=== PATIENT | male | born 1935 | race African-American/Black ===

== ENCOUNTER 2019-06-24 00:11 | Day surgery (SDC) | payer MEDICARE, SELFPAY ==
[2019-06-09 15:16] VITALS: BMI 26.1
[2019-06-24] VITALS (16 sets, daily range): BP systolic 76–154; BP diastolic 30–96; PULSE 62–88; RESP 12–20; TEMP 36.3–36.6; O2SAT 94–100
--- NOTE | 2019-06-24 06:33 | WPDHPUPDATE1 ---
History and Physical Update Update Date/Time: 06/24/19 06:33 History and Physical has been reviewed, including an updated exam of the patient. There are NO changes in the patient's condition. Risks, benefits, and alternatives have been discussed and questions answered. Patient agrees to proceed with procedure.
--- NOTE | 2019-06-24 08:13 | P.PNAN_ITS ---
Anes - Initial Pre Proc Eval Procedure: Operation Date: 06/24/19 10:45 Proposed Procedures p Transurethral Resection Bladder Tumor With Mitomycin C - Brandon Hollins MD Date/Time: 06/24/19 08:13 Surgeon: Brandon Hollins MD Pre Op Diagnosis: Bladder Tumor Patient Data Age: 83 Gender: M Height: 1.73 m Weight: 78 kg Allergies Allergy/AdvReac Type Severity Reaction Status Date / Time No Known Allergies Allergy Verified 06/09/19 15:10 Home Medications Medication Instructions Recorded Confirmed Type amlodipine 5 mg PO DAILY 03/01/19 06/09/19 History aspirin [Adult Low Dose Aspirin] 81 mg PO DAILY 03/01/19 06/09/19 History calcium polycarbophil [Fiber-Tabs] 1,250 mg PO DAILY 03/01/19 06/09/19 History cholecalciferol (vitamin D3) 1,000 unit PO DAILY 03/01/19 06/09/19 History cyanocobalamin (vitamin B-12) 2,000 mcg PO DAILY 03/01/19 06/09/19 History escitalopram oxalate 10 mg PO DAILY 03/01/19 06/09/19 History lisinopril 40 mg PO BID 03/01/19 06/09/19 History potassium chloride [Klor-Con 10] 20 meq PO DAILY 03/01/19 06/09/19 History pravastatin 20 mg PO HS 03/01/19 06/09/19 History psyllium husk [Metamucil] 0.52 g PO DAILY 03/01/19 06/09/19 History Patient hx anesthesia problems: none Family hx anesthesia problems: none [facility] Past Medical History Medical History (Updated 03/03/19 @ 08:32 by Saeid Trejo DO) Depression History of bladder cancer Hyperlipidemia Hypertension Anes - Eval Final PreProcedure Day of Procedure 06/24/19 08:13 Patient weight: overweight Heart: regular rate and rhythm Lungs: clear to auscultation and normal air movement Airway: Mallampati scale class II Neurological: alert and oriented Last oral intake: >/= 8 hours ASA classification: III Emergent: no Anesthetic plan: proceed Anesthesia type and monitoring: general GIVS Informed Consent: The patient's anesthetic plan and its attendant risks and benefits were discussed with the patient/family/POA. Questions were solicited and answers provided to the satisfaction of the patient/family/POA.
[2019-06-24] MEDS: LACTATED RINGERS 1,000 ML 30 ML IV CONT ×2 (09:18→10:46)
[2019-06-24] MEDS: ceFAZolin 2 GM/D5W 50 ML 2 GM/50 ML BAG IVPB (09:45)
--- NOTE | 2019-06-24 10:32 | PM.PROC ---
Procedure Note - Detailed Date of procedure: 06/24/19 Pre-op diagnosis: Bladder Tumor Post-op diagnosis: same Procedure performed: TURBT (medium, 3.5cm) Description of procedure: The patient was brought to the operative suite where he is prepped and draped in a routine sterile fashion while in the dorsal lithotomy position. This is done after the uneventful administration of systemic sedation. 2% Xylocaine jelly is introduced intraurethrally and allowed to stand for an appropriate period of time. A 24F resectoscope sheath was placed in the bladder and the bladder is circumferentially inspected carefully. 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 This area is resected in its entirety with an attempt made to include detrusor muscle for pathological evaluation of invasion. The base and periphery of this resected side is cauterized with a loop electrode. The bladder is emptied and the resectoscope was removed. The patient is taken to the recovery room having tolerated this procedure well. Anesthesia: GLMA Surgeon: Brandon Hollins MD Estimated blood loss (mL): 0 Drains: Yes (16F Patel) Packing: No Pathology: yes Complications: No immediate complications Condition: stable Disposition: PACU
--- NOTE | 2019-06-24 10:34 | PM.PROC ---
Procedure Note - Detailed Date of procedure: 06/24/19 Pre-op diagnosis: Bladder Tumor Post-op diagnosis: same Procedure performed: Instillation Mitomycin into bladder. Description of procedure: With the patient in the supine position, a 16F Patel catheter is placed using sterile technique. Using a protective facemask, gown and double layer of gloves Mitomycin 40gm in 60cc saline is administered through the catheter/into the bladder. The catheter is then plugged. Patient was instructed to lie supine x20min, then to roll both the left and right x20 min. each. Total dwell time will be 60 min., after which the bladder will be drained and catheter removed. Anesthesia: none Surgeon: Brandon Hollins MD Estimated blood loss (mL): 0 Drains: Yes (16F Patel) Packing: No Pathology: none sent Complications: No immediate complications Condition: stable Disposition: PACU
[2019-06-24 10:45] LABS: Glucose Point of Care 98 (65-105)
[2019-06-24] MEDS: ePHEDrine sulfate INJ 50 MG/ML AMPUL 25 MG IM (10:45)
--- NOTE | 2019-06-24 11:04 | SUR.PHASEI ---
1033 Mitali Sampson called to bedside, Pts bp 76/48 Pt diaphoretic, hr in the 60's, Pt with multifocal PVC's noted. Orders received. Pt remains on O2 via simple mask, fluids running. See MAR and charting
--- NOTE | 2019-06-24 12:12 | SUR.PHASEI ---
1155 MONTOYA CATHETER ATTACHED TO GRAVITY. MONTOYA DRAINING- LIGHT PURPLE IN COLOR WITHOUT CLOTS NOTED. 1203 BLADDER DRAINED. 150ML NS INSTILLED INTO BLADDER. MONTOYA CATHETER DISCONTINUED.
== END 2019-06-24 12:58 | disposition home or self-care (01) ==
PROVIDERS: Visit Provider Urology
PROC: 0TBB8ZZ Excision of Bladder, Via Natural or Artificial Opening Endoscopic (ICD-10-PCS; CPT 52235; principal; 2019-06-24 10:45)
DX: C67.2 Malignant neoplasm of lateral wall of bladder (principal); I10 Essential (primary) hypertension; F32.9 Major depressive disorder, single episode, unspecified; Z79.82 Long term (current) use of aspirin
CPT/HCPCS: 52235; 51720; 88305; A9270; J0690; J1100; J2370; J2405; J2704; J3010; J7120; J9280

== ENCOUNTER 2020-03-06 01:50 | Outpatient (CLI) | payer MEDICARE, SELFPAY ==
[2020-03-06 21:22] LABS: SARS-CoV-2 RNA PCR Positive
== END 2020-03-06 01:51 | disposition home or self-care (01) ==
LOC: ANHCOVIDDT 01:51
PROVIDERS: Visit Provider Urology
DX: U07.1 COVID-19 (principal)
CPT/HCPCS: 87635; 93005; C9803; U0003

== ENCOUNTER 2020-03-06 08:38 | Outpatient (CLI) | payer MEDICARE, SELFPAY ==
--- NOTE | 2020-03-06 08:39 | ECG_ITS ---
Measurements Intervals [place] Rate: 77 P: 51 MI: 175 QRS: 34 QRSD: 76 T: 98 QT: 366 QTc: 417 Interpretive Statements SINUS RHYTHM FREQUENT VENTRICULAR PREMATURE COMPLEXES LEFT ATRIAL ENLARGEMENT EARLY PRECORDIAL R/S TRANSITION LEFT VENTRICULAR HYPERTROPHY WITH ST-T CHANGE BASELINE ARTIFACT- I, II, AVR, V3-V4 BORDERLINE ECG Electronically Signed On 03-06-2020 11:20:24 MANAGEMENT ENGINEER by Rudy Moe D.O.
== END 2020-03-06 08:39 | disposition home or self-care (01) ==
PROVIDERS: Visit Provider Urology
DX: Z01.818 Encounter for other preprocedural examination (principal); I10 Essential (primary) hypertension; R94.31 Abnormal electrocardiogram [ECG] [EKG]
CPT/HCPCS: 93005

== ENCOUNTER 2020-03-27 01:37 | Outpatient (CLI) | payer MEDICARE, SELFPAY ==
[2020-03-27 18:52] LABS: SARS-CoV-2 RNA PCR Negative
== END 2020-03-27 01:38 | disposition home or self-care (01) ==
LOC: ANHCOVIDDT 01:38
PROVIDERS: Visit Provider Urology
DX: Z01.818 Encounter for other preprocedural examination (principal); Z20.828 Contact with and (suspected) exposure to other viral communicable diseases
CPT/HCPCS: 87635; C9803; U0003

== ENCOUNTER 2020-05-04 00:41 | Day surgery (SDC) | payer MEDICARE, SELFPAY ==
[2020-02-29 14:47] VITALS: BMI 25.9
--- NOTE | 2020-03-07 07:31 | P.HP_ITS ---
History of Present Illness History of Present Illness Consent: Risks, benefits, and alternatives have been discussed and questions answered. Patient agrees to proceed with procedure. Chief complaint: bladder tumors Narrative: Aron Boyce is a 84 year old male Who has a history of recurrent bladder tumors dating back to 2019. Recent outpatient cystoscopy showed several areas of recurrence including just inside the bladder neck anteriorly and laterally as well as in the left lateral wall. Recent CT scan of the abdomen and pelvis in October 2018 showed no evidence of upper tract pathology or metastatic disease. Review of Systems Cardiovascular: Cardiovascular: Denies chest pain, Denies lightheadedness, Denies palpitations and Denies dyspnea Respiratory: Respiratory: Denies dyspnea Gastrointestinal: Gastrointestinal: Denies diarrhea, Denies nausea and Denies vomiting Genitourinary: Genitourinary: Denies hematuria and Denies dysuria Endocrine: Endocrine: Denies palpitations PMFSH Past Medical History Medical History Depression History of bladder cancer Hyperlipidemia Hypertension Social History Social History Smoking status: Never smoker Alcohol intake: current Drinks per week: 2 Substance use: never Spiritual care concerns: No Meds Home Medications and Allergies Home Medications Medication Instructions Recorded Confirmed Type amlodipine 5 mg PO DAILY 03/01/19 02/29/20 History aspirin [Adult Low Dose Aspirin] 81 mg PO DAILY 03/01/19 02/29/20 History calcium polycarbophil [Fiber-Tabs] 1,250 mg PO DAILY 03/01/19 02/29/20 History cholecalciferol (vitamin D3) 1,000 unit PO DAILY 03/01/19 02/29/20 History cyanocobalamin (vitamin B-12) 2,000 mcg PO DAILY 03/01/19 02/29/20 History escitalopram oxalate 10 mg PO DAILY 03/01/19 02/29/20 History lisinopril 40 mg PO BID 03/01/19 02/29/20 History potassium chloride [Klor-Con 10] 20 meq PO DAILY 03/01/19 02/29/20 History pravastatin 20 mg PO HS 03/01/19 02/29/20 History psyllium husk [Metamucil] 0.52 g PO DAILY 03/01/19 02/29/20 History hydrocodone-acetaminophen 1 - 2 tablet PO Q6H PRN #20 tablet 06/24/19 02/29/20 Rx Allergies Allergy/AdvReac Type Severity Reaction Status Date / Time No Known Allergies Allergy Verified 02/29/20 14:40 Exam Const: General: no acute distress Resp: Effort & Inspection: normal respiratory effort GI: Inspection: non-distended GI Palp: No abdominal tenderness and No Guarding due to palpation present (GI) Auscultation: normal bowel sounds Assessment and Plan Assessment and plan (1) Malignant neoplasm of overlapping sites of bladder: Code(s): C67.8 - Malignant neoplasm of overlapping sites of bladder Status: Acute Assessment and Plan: * TURBT followed by intravesical mitomycin-C installation
--- NOTE | 2020-03-24 07:20 | P.HP_ITS ---
History of Present Illness History of Present Illness Consent: Risks, benefits, and alternatives have been discussed and questions answered. Patient agrees to proceed with procedure. Chief complaint: bladder tumors Narrative: Aron Boyce is a 84 year old male with a history of recurrent urolithiasis. In 12/2019 surveillance cystoscopy showed several recurrent bladder tumors just inside the bladder neck anteriorly, extending into left lateral wall. Review of Systems Cardiovascular: Cardiovascular: Denies chest pain, Denies lightheadedness, Denies palpitations and Denies dyspnea Respiratory: Respiratory: Denies dyspnea Gastrointestinal: Gastrointestinal: Denies diarrhea, Denies nausea and Denies vomiting Genitourinary: Genitourinary: Denies hematuria and Denies dysuria Endocrine: Endocrine: Denies palpitations PMFSH Past Medical History Medical History Depression History of bladder cancer Hyperlipidemia Hypertension Social History Social History Smoking status: Never smoker Alcohol intake: current Drinks per week: 2 Substance use: never Spiritual care concerns: No Meds Home Medications and Allergies Home Medications Medication Instructions Recorded Confirmed Type amlodipine 5 mg PO DAILY 03/01/19 02/29/20 History aspirin [Adult Low Dose Aspirin] 81 mg PO DAILY 03/01/19 02/29/20 History calcium polycarbophil [Fiber-Tabs] 1,250 mg PO DAILY 03/01/19 02/29/20 History cholecalciferol (vitamin D3) 1,000 unit PO DAILY 03/01/19 02/29/20 History cyanocobalamin (vitamin B-12) 2,000 mcg PO DAILY 03/01/19 02/29/20 History escitalopram oxalate 10 mg PO DAILY 03/01/19 02/29/20 History lisinopril 40 mg PO BID 03/01/19 02/29/20 History potassium chloride [Klor-Con 10] 20 meq PO DAILY 03/01/19 02/29/20 History pravastatin 20 mg PO HS 03/01/19 02/29/20 History psyllium husk [Metamucil] 0.52 g PO DAILY 03/01/19 02/29/20 History hydrocodone-acetaminophen 1 - 2 tablet PO Q6H PRN #20 tablet 06/24/19 02/29/20 Rx Allergies Allergy/AdvReac Type Severity Reaction Status Date / Time No Known Allergies Allergy Verified 02/29/20 14:40 Exam 2 Const: General: no acute distress Resp: Effort & Inspection: normal respiratory effort GI: Inspection: non-distended GI Palp: No abdominal tenderness and No Guarding due to palpation present (GI) Auscultation: normal bowel sounds Assessment and Plan Assessment and plan (1) Malignant neoplasm of overlapping sites of bladder: Code(s): C67.8 - Malignant neoplasm of overlapping sites of bladder Status: Acute Assessment and Plan: * Cystoscopy, TURBT and Mitomycin-C instillation.
[2020-03-24 09:41] VITALS: BMI 25.9
[2020-04-27 12:11] VITALS: BMI 25.9
--- NOTE | 2020-05-01 07:45 | P.HP_ITS ---
H&P: HPI History of Present Illness Date/Time: 05/01/20 07:45 Chief Complaint: Recurrent bladder tumors Narrative: Aron Boyce is a 84 year old male with known history of recurrent bladder tumors dating back to November 2018. surveillance cystoscopy in December 2019 revealed several areas recurrent neoplasm inside the anterior bladder neck. He was scheduled for TURBT had time but was canceled on a couple occasions because of an emergent hernia repair. Review of Systems Cardiovascular: Cardiovascular: Denies chest pain, Denies lightheadedness, Denies palpitations and Denies dyspnea Respiratory: Respiratory: Denies dyspnea Gastrointestinal: Gastrointestinal: Denies diarrhea, Denies nausea and Denies vomiting Genitourinary: Genitourinary: Denies hematuria and Denies dysuria Endocrine: Endocrine: Denies palpitations PMFSH Past Medical History Medical History Depression History of bladder cancer Hyperlipidemia Hypertension Social History Social History Smoking status: Never smoker Alcohol intake: current Drinks per week: 2 Substance use: never Living arrangements: with family Spiritual care concerns: No Meds Home Medications and Allergies Home Medications Medication Instructions Recorded Confirmed Type amlodipine 5 mg PO DAILY 03/01/19 04/27/20 History aspirin [Adult Low Dose Aspirin] 81 mg PO DAILY 03/01/19 04/27/20 History calcium polycarbophil [Fiber-Tabs] 1,250 mg PO DAILY 03/01/19 04/27/20 History cholecalciferol (vitamin D3) 1,000 unit PO DAILY 03/01/19 04/27/20 History cyanocobalamin (vitamin B-12) 2,000 mcg PO DAILY 03/01/19 04/27/20 History escitalopram oxalate 10 mg PO DAILY 03/01/19 04/27/20 History lisinopril 40 mg PO BID 03/01/19 04/27/20 History potassium chloride [Klor-Con 10] 20 meq PO DAILY 03/01/19 04/27/20 History pravastatin 20 mg PO HS 03/01/19 04/27/20 History psyllium husk [Metamucil] 0.52 g PO DAILY 03/01/19 04/27/20 History hydrocodone-acetaminophen 1 - 2 tablet PO Q6H PRN #20 tablet 03/05/20 01/07/21 Rx Allergies Allergy/AdvReac Type Severity Reaction Status Date / Time No Known Allergies Allergy Verified 04/27/20 12:21 Exam Const: General: no acute distress Resp: Effort & Inspection: normal respiratory effort GI: Inspection: non-distended GI Palp: No abdominal tenderness and No Guarding due to palpation present (GI) Auscultation: normal bowel sounds Assessment and Plan Assessment and plan (1) Malignant neoplasm of overlapping sites of bladder: Code(s): C67.8 - Malignant neoplasm of overlapping sites of bladder Status: Acute Assessment and Plan: * TURBT
[2020-05-04] VITALS (8 sets, daily range): BP systolic 121–147; BP diastolic 42–76; PULSE 65–84; RESP 8–22; TEMP 36.5–37; O2SAT 95–100
--- NOTE | 2020-05-04 07:10 | WPDHPUPDATE1 ---
History and Physical Update Update Date/Time: 05/04/20 07:10 History and Physical has been reviewed, including an updated exam of the patient. There are NO changes in the patient's condition. Risks, benefits, and alternatives have been discussed and questions answered. Patient agrees to proceed with procedure.
[2020-05-04] MEDS: LACTATED RINGERS 1,000 ML 30 ML IV CONT (10:02)
--- NOTE | 2020-05-04 10:13 | WPDANESEPPF ---
Anes - Initial Pre Proc Eval Procedure: Operation Date: 05/04/20 11:30 Proposed Procedures p Trans Urethral Resection Bladder Tumor with Mitomycin C Instillation - Brandon Hollins MD Date/Time: 05/04/20 10:13 Surgeon: Brandon Hollins MD Pre Op Diagnosis: bladder tumors Patient Data Age: 84 Gender: M Height: 5 ft 8 in Weight: 74.5 kg Last Vital Signs Temp 36.5 C 05/04/20 10:03 Pulse 79 05/04/20 10:03 Resp 16 05/04/20 10:03 BP 137/62 05/04/20 10:03 Pulse Ox 95 05/04/20 10:03 Allergies Allergy/AdvReac Type Severity Reaction Status Date / Time No Known Allergies Allergy Verified 05/04/20 09:24 Home Medications Medication Instructions Recorded Confirmed Type amlodipine 5 mg PO DAILY 03/01/19 05/04/20 History aspirin [Adult Low Dose Aspirin] 81 mg PO DAILY 03/01/19 05/04/20 History calcium polycarbophil [Fiber-Tabs] 1,250 mg PO DAILY 03/01/19 05/04/20 History cholecalciferol (vitamin D3) 1,000 unit PO DAILY 03/01/19 05/04/20 History cyanocobalamin (vitamin B-12) 2,000 mcg PO DAILY 03/01/19 05/04/20 History escitalopram oxalate 10 mg PO DAILY 03/01/19 05/04/20 History lisinopril 40 mg PO BID 03/01/19 05/04/20 History potassium chloride [Klor-Con 10] 20 meq PO DAILY 03/01/19 05/04/20 History pravastatin 20 mg PO HS 03/01/19 05/04/20 History hydrocodone-acetaminophen 1 - 2 tablet PO Q6H PRN #20 tablet 06/24/19 04/27/20 Rx Patient hx anesthesia problems: none Family hx anesthesia problems: none PMFSH Past Medical History Medical History Depression History of bladder cancer Hyperlipidemia Hypertension Social History Social History Smoking status: Never smoker Alcohol intake: current Drinks per week: 2 Substance use: never Living arrangements: with family Spiritual care concerns: No Anes - Eval Final PreProcedure Day of Procedure 05/04/20 10:13 Patient weight: normal Heart: regular rate and rhythm Lungs: clear to auscultation Airway: Mallampati scale class II Neurological: alert and oriented Last oral intake: >/= 8 hours ASA classification: III Emergent: no Anesthetic plan: proceed Anesthesia type and monitoring: general LMA and standard monitoring Informed Consent: The patient's anesthetic plan and its attendant risks and benefits were discussed with the patient/family/POA. Questions were solicited and answers provided to the satisfaction of the patient/family/POA.
[2020-05-04] MEDS: ceFAZolin 2 GM/D5W 50 ML 2 GM/50 ML BAG IVPB (10:49)
--- NOTE | 2020-05-04 11:44 | PM.PROC ---
Procedure Note - Detailed Date of procedure: 05/04/20 Pre-op diagnosis: bladder tumors Post-op diagnosis: same Procedure performed: 1TURBT (large, 5-6cm) Description of procedure: The patient was brought to the operative suite where he is prepped and draped in a routine sterile fashion while in the dorsal lithotomy position. This is done after the uneventful administration of systemic sedation. 2% Xylocaine jelly is introduced intraurethrally and allowed to stand for an appropriate period of time. A 24F resectoscope sheath was placed in the bladder and the bladder is circumferentially inspected carefully. He has a papillary transitional cell carcinoma predominately in the anterior bladder wall (5-6cm) but also two 1cm implants in the posterior bladder wall. This area is resected in its entirety with an attempt made to include detrusor muscle for pathological evaluation of invasion. Ureteral orifice integrity was preserved meticulously throughout this procedure. The base and periphery of this resected side is cauterized with a loop electrode. The bladder is emptied and the resectoscope was removed. The patient is taken to the recovery room having tolerated this procedure well. Anesthesia: GLMA Surgeon: Brandon Hollins MD Estimated blood loss (mL): 0 Drains: Yes (16F Patel) Packing: No Pathology: yes Complications: No immediate complications Condition: stable Disposition: PACU
--- NOTE | 2020-05-04 11:51 | PM.PROC ---
Procedure Note - Detailed Date of procedure: 05/04/20 Pre-op diagnosis: bladder tumors Post-op diagnosis: same Procedure performed: Mitomycin-C bladder instillation Description of procedure: With the patient in the supine position, a 16F Patel catheter is placed using sterile technique. Using a protective facemask, gown and double layer of gloves Mitomycin-C 40mg 500cc saline is administered through the catheter/into the bladder. The catheter is then plugged. Patient was instructed to lie supine x20min, then to roll both the left and right x20 min. each. Total dwell time will be 60 min., after which the bladder will be drained and catheter removed. Anesthesia: none Surgeon: Brandon Hollins MD Estimated blood loss (mL): 0 Drains: No Packing: No Pathology: none sent Complications: No immediate complications Condition: stable Disposition: PACU
--- NOTE | 2020-05-04 12:08 | SUR.PHASEI ---
DR. PAUL INSTILLED MITOMYCIN TO MONTOYA CATHETER. CATHETER CLAMPED; PATIENT ON RIGHT SIDE X 20 MIN.
[2020-05-04] MEDS: fentaNYL CITRATE INJ (*CRX) 100 MCG/2 ML VIAL 25 MCG IV PUSH (12:15)
--- NOTE | 2020-05-04 12:23 | SUR.PHASEI ---
PATIENT ON BACK X 20 MINUTES.
--- NOTE | 2020-05-04 12:39 | SUR.PHASEI ---
PATIENT ON LEFT SIDE X 20 MIN.
--- NOTE | 2020-05-04 12:56 | SUR.PHASEI ---
MONTOYA CATHETER DRAINED; IRRIGATED WITH 150 ML NORMAL SALINE. DRAINED AGAIN. RED URINE. PT TOLERATED PROCEDURE FAIR. MONTOYA CATHETER REMOVED.
== END 2020-05-04 13:50 | disposition home or self-care (01) ==
PROVIDERS: Visit Provider Urology
PROC: 0TBB8ZZ Excision of Bladder, Via Natural or Artificial Opening Endoscopic (ICD-10-PCS; CPT 52240; principal; 2020-05-04 11:30)
DX: C67.3 Malignant neoplasm of anterior wall of bladder (principal); I10 Essential (primary) hypertension; E78.5 Hyperlipidemia, unspecified; F32.9 Major depressive disorder, single episode, unspecified; Z79.82 Long term (current) use of aspirin
CPT/HCPCS: 52240; 51720; 88305; 88307; A9270; J0690; J2370; J2704; J3010; J7120; J9280

== ENCOUNTER 2020-12-06 11:57 | Outpatient (CLI) | payer MEDICARE, SELFPAY ==
--- NOTE | ~2020-12-06 | CT_ITS ---
EXAMINATION: CT LE LT wo con DATE: 12/06/2020 12:42 INDICATION: Unilateral primary osteoarthritis at the left knee. TECHNIQUE: High resolution computed tomography (CT) of the left lower limb from the hip through the a nkle was performed without intravenous contrast. Additional sagittal and coronal reconstructions were performed. Automated exposure control and iterative reconstruction technique were employed. The dose -length product was 1658.47 mGy-cm. COMPARISON: 10/04/2020 FINDINGS: Bone alignment is normal throughout the left lower limb. No fracture. Chondrocalcinosis at the medial and lateral menisci. Compartmental osteoarthritis at the left knee characterized by small marginal o steophyte in all 3 compartments and at least moderate joint space during the needle compartment and m ild joint space narrowing the patellofemoral compartment but which may be underestimated on nonweight bearing imaging. Small region of cortical irregularity suggesting high-grade overlying chondromalacia at the central weightbearing medial femoral condyle and caudal aspect of the trochlear groove. Small left knee joint effusion. Additional mild left hip and ankle osteoarthritis without joint effusions. Couple small heterotopic ossicles at the medial malleolar insertion of the deep deltoid ligament con sistent with likely sequela of chronic sprain. Small enthesophytes and/or hepatic ossicles at the [place] caneal insertion of the distal Achilles tendon. IMPRESSION: 1. 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 Reviewed, dictated and finalized at location A. IMPRESSION: 1. Chondrocalcinosis and at least moderate tricompartmental osteoarthritis at t he left knee with irregularity at the articular cortex suggesting high-grade ch ondromalacia along the weightbearing medial femoral condyle and at the trochlea r groove.
== END 2020-12-06 11:58 | disposition home or self-care (01) ==
PROVIDERS: PCP Internal Medicine Geriatric Medicine; Visit Provider Orthopaedic Surgery
DX: M17.12 Unilateral primary osteoarthritis, left knee (principal)
CPT/HCPCS: 73700

== ENCOUNTER 2020-12-11 08:10 | Outpatient (CLI) | payer MEDICARE, SELFPAY ==
--- NOTE | 2020-12-11 | ECG_ITS ---
Measurements Intervals [place] Rate: 78 P: 51 RI: 160 QRS: 31 QRSD: 89 T: 103 QT: 369 QTc: 421 Interpretive Statements SINUS RHYTHM VENTRICULAR BIGEMINY POSSIBLE LEFT ATRIAL ENLARGEMENT BORDERLINE ST-T WAVE ABNORMALITY- ANTEROLAT/HIGH LAT LEADS ABNORMAL ECG Electronically Signed On 12-11-2020 9:07:55 CDT by Rudy Moe D.O.
[2020-12-11 08:51] LABS: Hematocrit 42.3 % (42.0-52.0)
[2020-12-11 09:19] LABS: Albumin Level 3.7 g/dL (3.5-5.1); Estimated Glomerular Filt Rate > 60; Glucose 110 mg/dL (65-110)
[2020-12-11 10:01] LABS: Hemoglobin A1C 6.3 % (<5.7)
== END 2020-12-11 08:11 | disposition home or self-care (01) ==
PROVIDERS: PCP Internal Medicine Geriatric Medicine; Visit Provider Orthopaedic Surgery
DX: M17.12 Unilateral primary osteoarthritis, left knee (principal); Z01.818 Encounter for other preprocedural examination; R94.31 Abnormal electrocardiogram [ECG] [EKG]
CPT/HCPCS: 36415; 82040; 82565; 82947; 83036; 85014; 85018; 93005

== ENCOUNTER 2021-05-02 07:35 | Outpatient (CLI) | payer MEDICARE, SELFPAY ==
[2021-05-02 09:09] LABS: Eosinophils Absolute Auto 0.2 K/mm3 (0-0.3); Eosinophils Percent Auto 5.1 % (0-4.4); Hemoglobin 14.1 g/dL (14.0-18.0); Immature Granulocyte Absolute 0.01 K/mm3 (0.00-0.031); Immature Granulocyte Percent A 0.3 % (0-0.5); Lymphocytes Absolute Auto 1.29 K/mm3 (0.9-3.2); Mean Corpuscular HGB Conc 33.6 g/dl (32-36); Mean Corpuscular Hemoglobin 30.7 pg (26-34); Mean Corpuscular Volume 91.5 fl (80-100); Monocytes Absolute Auto 0.4 K/mm3 (0.1-0.6); Monocytes Percent Auto 10.2 % (2.6-8.5); Neutrophils Percent Auto 50.4 % (45.5-73.1); Platelet Count Result 231 k/mm3 (150-375); Red Blood Count 4.59 M/mm3 (4.6-6.20); Red Cell Distribution Width 13.6 % (11.5-14.5); White Blood Count 3.9 K/mm3 (4.5-10.0)
[2021-05-02 09:28] LABS: Albumin Level 4.1 g/dL (3.5-5.1); Estimated Glomerular Filt Rate > 60; Glucose 131 mg/dL (65-110)
[2021-05-02 10:24] LABS: Urine Cotinine NEGATIVE
[2021-05-02 10:58] LABS: Hemoglobin A1C 6.2 % (<5.7)
== END 2021-05-02 07:36 | disposition home or self-care (01) ==
PROVIDERS: PCP Internal Medicine Geriatric Medicine; Visit Provider Orthopaedic Surgery
DX: Z01.812 Encounter for preprocedural laboratory examination (principal); M17.12 Unilateral primary osteoarthritis, left knee; Z51.81 Encounter for therapeutic drug level monitoring; Z79.899 Other long term (current) drug therapy
CPT/HCPCS: 80307; 82040; 82565; 82947; 83036; 85025; 87081

== ENCOUNTER 2021-08-29 11:19 | Outpatient (CLI) | payer MEDICARE, SELFPAY ==
[2021-08-29 12:03] LABS: Basophils Absolute Auto 0.1 K/mm3 (0.0-0.1); Basophils Percent Auto 1.5 % (0.2-1.2); Eosinophils Absolute Auto 0.2 K/mm3 (0-0.3); Eosinophils Percent Auto 4.6 % (0-4.4); Hematocrit 41.7 % (42.0-52.0); Hemoglobin 14.2 g/dL (14.0-18.0); Lymphocytes Absolute Auto 1.51 K/mm3 (0.9-3.2); Lymphocytes Percent Auto 36.6 % (18.3-44.2); Mean Corpuscular HGB Conc 34.1 g/dl (32-36); Mean Corpuscular Hemoglobin 31.3 pg (26-34); Mean Corpuscular Volume 91.9 fl (80-100); Mean Platelet Volume 9.8 fl (7.4-10.4); Monocytes Absolute Auto 0.5 K/mm3 (0.1-0.6); Monocytes Percent Auto 12.3 % (2.6-8.5); Neutrophils Absolute Auto 1.9 K/mm3 (1.3-6.7); Platelet Count Result 248 k/mm3 (150-375); Red Blood Count 4.54 M/mm3 (4.6-6.20); Red Cell Distribution Width 14.1 % (11.5-14.5); White Blood Count 4.1 K/mm3 (4.5-10.0)
[2021-08-29 12:13] LABS: Urine Cotinine NEGATIVE
[2021-08-29 12:13] LABS: Estimated Glomerular Filt Rate > 60; Glucose 110 mg/dL (65-110)
[2021-08-29 12:45] LABS: Hemoglobin A1C 5.7 % (<5.7)
== END 2021-08-29 11:20 | disposition home or self-care (01) ==
LOC: ANHSURGERY 11:24
PROVIDERS: PCP Internal Medicine Geriatric Medicine; Visit Provider Orthopaedic Surgery
DX: Z01.812 Encounter for preprocedural laboratory examination (principal); M17.12 Unilateral primary osteoarthritis, left knee; Z51.81 Encounter for therapeutic drug level monitoring; Z79.899 Other long term (current) drug therapy
CPT/HCPCS: 80307; 82040; 82565; 82947; 83036; 85025; 86850; 86900; 86901; 87081

== ENCOUNTER 2021-09-06 00:14 | Day surgery (SDC) | payer MEDICARE, SELFPAY ==
[2021-05-02 07:49] VITALS: BMI 26.0
--- NOTE | 2021-05-02 08:20 | PC.NURSE ---
Report to the Outpatient Waiting Room, entrance under the green pavilion located off [facility], at time _0830 on date _05/22/21 . OR Time: __1030 . - You and your visitor will be asked a series of questions to screen for COVID 19 for your protection. - A mask is required within the hospital. - Only one visitor is allowed at this time. Patient visitors will be guided where to wait when not with patient. Preoperative COVID Testing Requirements: No COVID Test needed if: (proof is required; if not received patient will have Rapid Test prior to entry) - Patient has received COVID Vaccine at least 14 days prior to procedure date or - Patient has positive COVID test result within last 90 days of surgery date. COVID Test needed if above criteria is not met If not COVID vaccinated a COVID test must be conducted within 72 hours of surgery and patient is asked to isolate self from time of testing until procedure. You will go to the [facility] for your COVID testing. The [facility] site is located at the corner of [address] [facility]. You will only be called if COVID results are positive and your surgeon may reschedule your elective surgery date. Patients may have clear liquids (water, carbonated beverages, clear teas, apple juice) until 3 hours prior to surgery with a maximum of 20 ounces. - No food from midnight until time of surgery - Infants may have breast milk until 4 hours before surgery, infant formula 6 hours prior to surgery. - Children will be allowed to drink immediately following surgery. If applicable, please bring a bottle or sippy cup to assist with drinking. Juice, water, soda, and popsicles are readily available. For infants on formula, please bring formula the day of surgery. Pacifiers are allowed. Take the following medications with a SIP of water the morning of surgery: __ISOSORBIDE,ESCITALPRAM, Medications to discontinue per physician ASPIRIN 7 DAYS PRE OP, ALL VITAMINS AND SUPPLEMENTS 3 DAYS PRE OP Date to take last dose__ASPIRIN 05/14/21, VITAMINS 05/18/21 Please no make-up, nail korean, hairspray, perfume, deodorant, or body powder the day of surgery. No jewelry (including any body piercings) or valuables the day of surgery, leave them at home. Please take a shower or bath the night before, or the morning of, surgery with an antibacterial soap. Wear comfortable, loose fitting clothing. Children are encouraged to wear pajamas. - Jewelry must be removed prior to entering the operating room. Rings and piercings that are not removed may be cut off. - The hospital will not accept responsibility for valuables. - Please leave all valuables, including medications, at home the day of surgery. If you are going home after surgery, a licensed lease purchase driver must drive you home. - NO public transportation without another adult. - We recommend that an adult stay with you for 24 hours following discharge. - We also recommend that you do not drive, make important decision, drink alcoholic beverages, or take any drugs that were not prescribed by your health care provider for at least 24 hours after your discharge time. For Pediatric surgeries, we recommend two adults accompany the child home (only one inside the building at this time). Follow any additional instructions given to you from your surgeon. Telephone instructions given to _PATIENT and asked if any additional questions and then verbalized understanding. Patient advised to call surgeon office or pre surgery nurse liaison [phone] if any additional questions.
[2021-05-02 08:45] VITALS: BP 139/74; PULSE 88; RESP 16; TEMP 36.9; O2SAT 99
--- NOTE | 2021-08-24 09:17 | PC.NURSE ---
Report to the Outpatient Waiting Room, entrance under the green pavilion located off [facility], at time _0600 on date _09/06/21 . OR Time: _0730 . - You and your visitor will be asked a series of questions to screen for COVID 19 for your protection. - Only one visitor is allowed at this time. - The patient visitor is requested to leave or wait in car when not with patient. - A mask is required within the hospital. Patients may have clear liquids (water, carbonated beverages, clear teas, apple juice) until 3 hours prior to surgery with a maximum of 20 ounces. - No food from midnight until time of surgery - Infants may have breast milk until 4 hours before surgery, infant formula 6 hours prior to surgery. - Children will be allowed to drink immediately following surgery. If applicable, please bring a bottle or sippy cup to assist with drinking. Juice, water, soda, and popsicles are readily available. For infants on formula, please bring formula the day of surgery. Pacifiers are allowed. Take the following medications with a SIP of water the morning of surgery: ___ISOSORBIDE AND ESCITALOPRAM Medications to discontinue per physician ___ASPIRIN 7 DAYS PRE OP, ALL VITAMINS AND SUPPLEMENTS 3 DAYS PRE OP Date to take last dose_ASPIRIN 08/29/21, ALL VITAMINS AND SUPP.09/02/21 Please no make-up, nail saudi arabian, hairspray, perfume, deodorant, or body powder the day of surgery. No jewelry (including any body piercings) or valuables the day of surgery, leave them at home. Please take a shower or bath the night before, or the morning of, surgery with an antibacterial soap. Wear comfortable, loose fitting clothing. Children are encouraged to wear pajamas. - Jewelry must be removed prior to entering the operating room. Rings and piercings that are not removed may be cut off. - The hospital will not accept responsibility for valuables. - Please leave all valuables, including medications, at home the day of surgery. If you are going home after surgery, a licensed day haul or farm charter bus driver must drive you home. - NO public transportation without another adult. - We recommend that an adult stay with you for 24 hours following discharge. - We also recommend that you do not drive, make important decision, drink alcoholic beverages, or take any drugs that were not prescribed by your health care provider for at least 24 hours after your discharge time. For Pediatric surgeries, we recommend two adults accompany the child home (only one inside the building at this time). Follow any additional instructions given to you from your surgeon. If you or anyone in your household have experienced Covid symptoms in the past week, please notify your surgeon or the nurse liaison at the phone number below for possible testing. Telephone instructions given to __PATIENT and asked if any additional questions and then verbalized understanding. Patient advised to call surgeon office or pre surgery nurse liaison [phone] if any additional questions.
[2021-08-24 09:24] VITALS: BMI 25.0
--- NOTE | 2021-09-05 08:07 | WPDANESEPPF ---
Anes - Initial Pre Proc Eval Procedure: Operation Date: 09/06/21 07:30 Proposed Procedures p Left Custom Total Knee Arthroplasty - Justin Alegre MD Date/Time: 09/05/21 08:07 Surgeon: Justin Alegre MD Pre Op Diagnosis: Primary OA left knee Patient Data Age: 85 Gender: M Height: 1.73 m Weight: 74.85 kg Last Vital Signs Temp 36.9 C 05/02/21 08:45 Pulse 88 05/02/21 08:45 Resp 16 05/02/21 08:45 BP 139/74 05/02/21 08:45 Pulse Ox 99 05/02/21 08:45 Allergies Allergy/AdvReac Type Severity Reaction Status Date / Time No Known Allergies Allergy Verified 09/06/21 06:18 Home Medications Medication Instructions Recorded Confirmed Type aspirin [Adult Low Dose Aspirin] 81 mg PO DAILY 03/01/19 09/06/21 History cholecalciferol (vitamin D3) 1,000 unit PO DAILY 03/01/19 09/06/21 History cyanocobalamin (vitamin B-12) 2,000 mcg PO DAILY 03/01/19 09/06/21 History potassium chloride [Klor-Con 10] 20 meq PO DAILY 03/01/19 09/06/21 History pravastatin 20 mg PO HS 03/01/19 09/06/21 History escitalopram oxalate 10 mg tablet 20 mg PO DAILY tablet 10/03/20 09/06/21 History isosorbide mononitrate 30 mg 30 mg PO DAILY 10/03/20 09/06/21 History tablet,extended release 24 hr pseudoephedrine-guaifenesin ER 120 1 tablet PO Q12H PRN 10/03/20 09/06/21 History mg-1,200 mg tab,extend release 12hr lisinopril 10 mg PO DAILY 05/02/21 09/06/21 History psyllium [Metamucil] 1 packet PO DAILY 05/02/21 09/06/21 History vitamin E 100 unit PO DAILY 05/02/21 09/06/21 History Patient hx anesthesia problems: none Family hx anesthesia problems: none Results Review: All pre-operative results and documents have been reviewed as part of the pre-operative evaluation. FORMERLY [facility] Past Medical History Medical History Depression History of bladder cancer Hyperlipidemia Hypertension Surgical History Surgical History H/O arthroscopy of left knee (~1969) History of hernia repair (~1961) History of repair of rotator cuff (~1999) Family History Family History Mother Pancreatic cancer Sibling Malignant neoplasm of prostate Sibling Lung cancer Social History Social History Smoking status: Never smoker Additional smoking assessment comments: DENIES ANY FORM OF TOBACCO USE Alcohol intake: never Substance use: never Living arrangements: with family Spiritual care concerns: No Anes - Eval Final PreProcedure Day of Procedure 09/05/21 08:07 Patient weight: normal Heart: regular rate and rhythm Lungs: clear to auscultation and normal air movement Airway: Mallampati scale class II Neurological: alert and oriented Last oral intake: >/= 8 hours ASA classification: III Emergent: no Anesthetic plan: proceed Anesthesia type and monitoring: general LMA Results Review: All pre-operative results and documents have been reviewed as part of the pre-operative evaluation. Informed Consent: The patient's anesthetic plan and its attendant risks and benefits were discussed with the patient/family/POA. Questions were solicited and answers provided to the satisfaction of the patient/family/POA.
--- NOTE | 2021-09-05 08:08 | WPDANESPNB ---
Anes - Peripheral Nerve Block Date/Time: 09/05/21 08:08 I have discussed with the patient/family/POA the placement of a peripheral nerve block for post-operative pain management, including associated risks, benefits, complications, and side effects. Alternative methods of post-operative analgesia were detailed. Questions were solicited and answers provided to the satisfaction of the patient/family/POA. Time-Out: A pre-procedural Time-Out was completed immediately before starting the procedure and confirmed: Patient Identification, Site, Procedure, Patient Position and the Availability of Requisite Equipment. Clinical Indications: Acute post-operative pain management requested by the operative surgeon. Nerve Block Insertion Note Anes-nerve block: adductor canal left Patient position: supine Skin prep: chlorhexidine Needle: 22 gauge, stimulating, insulated echogenic needle. Needle length: 80 mm Technique: ultrasound Technique comment: in plane Injectate: bupivacaine 0.5% with epi 5 mcg/ml (30cc) Observations: tolerated well Complications: none Procedure start time:: 725 Procedure end time:: 730
[2021-09-06] VITALS (15 sets, daily range): BP systolic 79–139; BP diastolic 41–79; PULSE 58–90; RESP 14–22; TEMP 36.4–36.8; O2SAT 93–100
--- NOTE | ~2021-09-06 | XR_ITS ---
EXAMINATION: XR knee LT 2V DATE: 09/06/2021 10:15 CDT INDICATION: Left total knee arthroplasty TECHNIQUE: 2 views left knee FINDINGS: There is a left total knee arthroplasty in expected position. Subcutaneous gas with fluid and air in the joint are consistent with recent surgery. No evidence of periprosthetic fracture. IMPRESSION: 1. Recent left total knee arthroplasty. Reviewed, dictated and finalized at location B.
[2021-09-06] MEDS: ACETAMINOPHEN 500 MG TABLET 1000 MG PO (06:38)
[2021-09-06] MEDS: LACTATED RINGERS 1,000 ML 30 ML IV CONT ×2 (06:45→09:50)
[2021-09-06] MEDS: TRANEXAMIC ACID 1,000MG/ISO100 1,000 MG/100 ML BAG 200 MG IVPB (07:03)
--- NOTE | 2021-09-06 07:03 | WPDHPUPDATE1 ---
History and Physical Update Update Date/Time: 09/06/21 07:03 History and Physical has been reviewed, including an updated exam of the patient. There are NO changes in the patient's condition. Risks, benefits, and alternatives have been discussed and questions answered. Patient agrees to proceed with procedure.
[2021-09-06] MEDS: ceFAZolin 2 GM/D5W 50 ML 2 GM/50 ML BAG IVPB ×3 (07:32→23:23)
[2021-09-06] MEDS: ePHEDrine sulfate INJ 50 MG/ML AMPUL 25 MG IM (10:31)
[2021-09-06] MEDS: fentaNYL CITRATE INJ (*CRX) 100 MCG/2 ML VIAL 25 MCG IV PUSH (11:10)
--- NOTE | 2021-09-06 11:39 | W.PM.PROC2 ---
Procedure Note - Detailed Date of Procedure 09/06/21 Pre-op Diagnosis Primary OA left knee Post-op Diagnosis Same Procedure Performed Total knee arthroplasty, left. Surgeon Justin Alegre MD Machine Feed Operator Veronica Garcia PA-C Anesthesia General and Regional (Subsartorial block.) Findings Custom knee implant and instruments fit optimally. No medial release required. Size B lateral insert used. Description of Procedure Preoperative antibiotics were given. The limb was prepped and draped in the usual sterile fashion with a well-padded tourniquet high on the thigh. The limb was exsanguinated and the tourniquet inflated to 300 mmHg during the exposure and cementation. A longitudinal incision was created just medial to the patella. A trivector approach to the knee was performed. Arthrotomy was taken down through the joint capsule. No significant releases were initially taken. The femur was exposed and the F1 jig was applied. The coring tool was used to remove the cartilage for the F2 jig to sit flush with the bone. The jig was pinned and the distal cut carefully taken. Caliper measurements confirmed appropriate bony resections according to the preoperative templated plan. The F4 cutting jig for the femur was applied, at the standard rotation. The AP and anterior chamfer cuts were taken. The F5 jig was applied and the posterior chamfer cuts were taken. The tibia was prepared using the T1 jig, after removing cartilage for the jig contact points. Proper alignment was checked with the alignment иван. The tibia was cut using the T1u guide. Gap balancing was performed. Gap measurements were taken and the knee was trialed. Excellent alignment and soft tissue balancing was confirmed. The posterior cruciate ligament was recessed along the proximal tibia. The patella was very healthy, and tracked well. Lateral denervation performed. Meniscal remnants were removed. The trial components were assembled. Excellent range of motion and proper soft tissue balancing were confirmed throughout the full range of motion. Patellar tracking was excellent. The knee was copiously irrigated periodically throughout the procedure. The real implants were cemented into position. Excess cement was carefully removed. The wound was closed in layers with interrupted #1 Vicryl suture, 2-0 strata fix suture, 0 strata fix suture, 2-0 strata fix suture. Steri-Strips placed on the skin with the knee flexed. Sterile bulky dressing applied. The patient was brought to the recovery room in stable condition. There were no complications. Physician graphic design assistant, Veronica Garcia PA-C, required for surgery; including patient positioning, draping, tissue retraction, maintaining instrument position, cement removal, wound closure, and dressing placement. Implants Conformis Custom total knee arthroplasty. Cemented. Cruciate retaining. 6B insert. Estimated Blood Loss 50 Drains No Pathology None sent Complications No immediate complications Condition Stable Disposition PACU [facility] Billing Surgery - Charge Forward: Surgery Billing
--- NOTE | 2021-09-06 12:18 | PC.NURSE ---
This patient, Aron Boyce, was admitted to Medical Room 260-01. Patient/family oriented to hospital policies and general routines including ID bracelet, bed and alarms, visiting hours, pain management, procedures, bathroom and other care routines, personal items, smoking policy, room service/diet, and visiting hours. Information on how to activate the Rapid Response Team has been discussed. Patient/Family are encouraged to report perceived risks to care and to ask questions if they do not understand what they are told or what they should do.
[2021-09-06] MEDS: SODIUM CHLORIDE 0.9% IV 1,000 ML 125 ML IV CONT (12:20)
[2021-09-06] MEDS: oxyCODONE HCL (*CRX) 5 MG TAB IR PO ×2 (12:40→21:00)
[2021-09-06] MEDS: lisinopriL 10 MG TABLET PO (13:09)
[2021-09-06] MEDS: PSYLLIUM POWDER PACKET 1 PACKET PO (13:09)
[2021-09-06] MEDS: MELOXICAM 7.5 MG TABLET PO (16:26)
[2021-09-06] MEDS: SENNA/DOCUSATE SODIUM TABLET 2 TAB PO (16:26)
[2021-09-06] MEDS: ASPIRIN 81 MG ENTERIC TABLET PO (16:27)
[2021-09-06] MEDS: FAMOTIDINE 20 MG TABLET PO (21:00)
[2021-09-06] MEDS: PRAVASTATIN SODIUM 20 MG TABLET PO (21:00)
[2021-09-07] VITALS: BP 129/63; PULSE 80; RESP 18; TEMP 36.3; O2SAT 97
[2021-09-07 04:00] VITALS: BP 141/71; PULSE 72; RESP 18; TEMP 36.6; O2SAT 95
--- NOTE | 2021-09-07 08:41 | PM.DS ---
DS: Admitting Diagnosis Discharge Date 09/07/21 Admitting Diagnosis OA knee Left DS: Discharge Diagnosis Discharge Diagnosis (1) Status post total left knee replacement: Code(s): Z96.652 - Presence of left artificial knee joint Status: Acute Assessment and Plan: Postop day 1: Left total knee arthroplasty. Patient tolerated procedure well. No complications. Pain manageable with pain medication. No numbness or tingling. We had a lengthy discussion regarding postoperative wound care, limitations, expectations, and exercises. Patient shows good understanding. He has had initial physical therapy and is tolerating it well. DVT prophylaxis: 81 mg baby aspirin b.i.d. for 14 days. Pain medication: Percocet. Meloxicam. Prednisone. Patient has followup appointment with Dr. Alegre in 3 weeks. DS: Summary Hospital Course Reason for hospitalization: Total knee arthroplasty Hospital Course: Patient tolerated procedure well. Has had initial PT/OT. Status at Discharge Functional status at discharge: uses cane/walker Overall status at discharge: patient is progressing back to baseline Time Spent with Patient Time attestation: Total time spent providing and/or coordinating discharge services: Exam Narrative: Normal weight 85 y/o Male. Resting comfortably in bed. Wearing compression socks bilaterally. Dressing intact with no drainage. Moderate swelling. No ecchymosis. No erythema. No hematoma. Range of motion limited due to pain 5-85. Calf nontender. Neurologic status intact. No varicosities. Distal pulses palpable. Discharge Plan Discharge Patient Disposition: Home, Self-Care Discharge Instructions: See green instruction sheets Patient Instructions: Help Prevent Suicide in Older Adults (GEN), Depression in Older Adults (ED) Follow-up/Referrals: Veronica Garcia PA [Physician Cardiothoracic Surgeon] - Discharge Medications: New aspirin 81 mg tablet,delayed release (DR/EC) 81 mg PO BID 14 Days Qty: 28 RF: 0 meloxicam 7.5 mg tablet 7.5 mg PO DAILY MDD 2 Qty: 60 RF: 0 oxycodone-acetaminophen 5-325 mg tablet 1 - 2 tablet PO Q4-6H MDD 6 PRN (Reason: pain) Qty: 30 RF: 0 prednisone 5 mg tablet 5 mg PO DAILY 21 Days Qty: 21 RF: 0 Continued isosorbide mononitrate 30 mg tablet extended release 24 hr 30 mg PO DAILY RF: 0 pseudoephedrine-guaifenesin [Mucinex D Maximum Strength] 120-1,200 mg tablet extended release 12 hr 1 tablet PO Q12H PRN (Reason: Allergy Symptoms) RF: 0 lisinopril 10 mg Tablet 10 mg PO DAILY RF: 0 vitamin E 100 unit Tablet 100 unit PO DAILY RF: 0 psyllium Packet 1 packet PO DAILY RF: 0 potassium chloride [Klor-Con 10] 10 mEq Tablet Extended Release 20 meq PO DAILY RF: 0 aspirin [Adult Low Dose Aspirin] 81 mg Tablet,Delayed Release (Dr/Ec) 81 mg PO DAILY RF: 0 Hold Instructions: Resume on 05/07/20. pravastatin 20 mg Tablet 20 mg PO HS RF: 0 cholecalciferol (vitamin D3) 1,000 unit Capsule 1,000 unit PO DAILY RF: 0 Hold Instructions: Resume on 06/28/19. cyanocobalamin (vitamin B-12) 2,000 mcg Tablet 2,000 mcg PO DAILY RF: 0 Hold Instructions: Resume on 06/28/19. escitalopram oxalate 10 mg tablet 20 mg PO DAILY RF: 0
[2021-09-07 09:13] VITALS: BP 143/59; PULSE 83; RESP 16; TEMP 36.6; O2SAT 97
[2021-09-07] MEDS: ceFAZolin 2 GM/D5W 50 ML 2 GM/50 ML BAG IVPB (09:14)
[2021-09-07] MEDS: ASPIRIN 81 MG ENTERIC TABLET PO (09:15)
[2021-09-07] MEDS: ESCITALOPRAM OXALATE 10 MG TABLET 20 MG PO (09:15)
[2021-09-07] MEDS: SENNA/DOCUSATE SODIUM TABLET 2 TAB PO (09:15)
[2021-09-07] MEDS: MELOXICAM 7.5 MG TABLET PO (09:16)
[2021-09-07] MEDS: predniSONE 5 MG TABLET PO (09:16)
[2021-09-07] MEDS: lisinopriL 10 MG TABLET PO (09:16)
[2021-09-07] MEDS: ISOSORBIDE MONONITRATE 30 MG TAB.ER.24H PO (09:16)
[2021-09-07 09:17] VITALS: PULSE 72; RESP 18; O2SAT 95
[2021-09-07] MEDS: PSYLLIUM POWDER PACKET 1 PACKET PO (09:17)
[2021-09-07] MEDS: polyethylene glycoL 3350 17 GM POWD.PACK PO (09:17)
[2021-09-07] MEDS: FAMOTIDINE 20 MG TABLET PO (09:17)
== END 2021-09-07 13:10 | disposition home or self-care (01) ==
LOC: ANHSURGERY 05:46 → ANH2MED 11:45
PROVIDERS: PCP Internal Medicine Geriatric Medicine; Visit Provider Orthopaedic Surgery
PROC: (CPT 27447; principal; 2021-09-06 07:30)
DX: M17.12 Unilateral primary osteoarthritis, left knee (principal); G89.18 Other acute postprocedural pain; F32.9 Major depressive disorder, single episode, unspecified; I10 Essential (primary) hypertension; E78.5 Hyperlipidemia, unspecified; Z85.51 Personal history of malignant neoplasm of bladder; Z79.82 Long term (current) use of aspirin
CPT/HCPCS: 64447; 27447; 73560; 80307; 82040; 82565; 82947; 83036; 85025; 86850; 86900; 86901; 87081; 97110; 97116; 97161; 97165; 97530; 97535; A9270; C1713; C1776; J0131; J0171; J0690; J1100; J1885; J2250; J2270; J2370; J2405; J2704; J2795; J3010; J7030; J7120; J7512